=== PATIENT | female | born 1990 | race African-American/Black ===

== ENCOUNTER 2019-05-11 14:59 | Emergency (ER) | payer SELFPAY ==
[~2019-05-11] VITALS: Ht 160 cm; Wt 63.3 kg
[2019-05-11 15:35] VITALS: BP 104/68
[2019-05-11 15:41] LABS: BILIRUBIN,URINE NEGATIVE (NEG); CLARITY,URINE CLEAR; COLOR,URINE YELLOW; NITRITE,URINE NEGATIVE (NEG); PH,URINE 7.5 (<5.0-8.0); PROTEIN,URINE NEGATIVE (NEG-TRACE)
[2019-05-11 15:56] LABS: SQUAMOUS EPITHELIAL CELL,UR MOD /LPF
--- NOTE | 2019-05-11 15:56 | PHYS DOC ---
Past Medical History Past Medical History: No Pertinent History (GERALD HORNE APRN) Past Surgical History: No Surgical History (GERALD HORNE APRN) Smoking Status: Current Every Day Smoker Alcohol Use: None (GERALD HORNE APRN) Adult General Chief Complaint Chief Complaint: ABDOMINAL PAIN HPI HPI Patient is a 28 year old female who presents to the ED today complaining of 7 out of 10 intermittent pelvic pain, symptoms began 1-1/2 weeks ago. Patient is also reporting spotting for a week. Denies any chance she is . Denies being on any control. Denies any nausea, vomiting, diarrhea. Denies any concerns for STDs. (GERALD HORNE APRN) Review of Systems Review of Systems Constitutional: Denies fever or chills [] Eyes: Denies change in visual acuity, redness, or eye pain [] HENT: Denies nasal congestion or sore throat [] Respiratory: Denies cough or shortness of breath [] Cardiovascular: No additional information not addressed in HPI [] GI: Reports pelvic pain and spotting, denies, nausea, vomiting, bloody stools or diarrhea [] : Denies dysuria or hematuria [] Musculoskeletal: Denies back pain or joint pain [] Integument: Denies rash or skin lesions [] Neurologic: Denies headache, focal weakness or sensory changes [] All other systems were reviewed and found to be within normal limits, except as documented in this note. (GERALD HORNE APRN) Allergies Allergies Allergies Coded Allergies Type Severity Reaction Last Updated Verified nitrofurantoin Allergy Severe THROAT SWELLING 05/11/19 Yes (BRANDON GERMAN MD) Physical Exam Physical Exam Constitutional: Well developed, well nourished, no acute distress, non-toxic appearance. [] HENT: Normocephalic, atraumatic, bilateral external ears normal, oropharynx moist, no oral exudates, nose normal. [] Eyes: PERRLA, EOMI, conjunctiva normal, no discharge. [] Neck: Normal range of motion, no tenderness, supple, no stridor. [] Cardiovascular:Heart rate regular rhythm, no murmur [] Lungs & Thorax: Bilateral breath sounds clear to auscultation [] Abdomen: Bowel sounds normal, soft, no tenderness, no masses, no pulsatile masses. [] Pelvic exam External pelvic is normal, cervix is visualized, closed, no CMT, no adnexal tenderness, trace amount of bright red blood in the vaginal vault consistent with spotting. Skin: Warm, dry, no erythema, no rash. [] Back: No tenderness, no CVA tenderness. [] Extremities: No tenderness, no cyanosis, no clubbing, ROM intact, no edema. [] Neurologic: Alert and oriented X 3, normal motor function, normal sensory function, no focal deficits noted. [] Psychologic: Affect normal, judgement normal, mood normal. [] (GERALD HORNE APRN) Current Patient Data Vital Signs Vital Signs Date Time Temp Pulse Resp B/P (MAP) Pulse Ox O2 Delivery O2 Flow Rate FiO2 05/11/19 15:35 98.2 90 16 104/68 (80) 97 Room Air 98.2 (BRANDON GERMAN MD) Lab Values Laboratory Tests Test 05/11/19 15:20 05/11/19 15:28 Urine Collection Type Unknown Urine Color Yellow Urine Clarity Clear Urine pH 7.5 (<5.0-8.0) Urine Specific [place] >=1.030 (1.000-1.030) Urine Protein Negative mg/dL (NEG-TRACE) Urine Glucose (UA) Negative mg/dL (NEG) Urine Ketones (Stick) Negative mg/dL (NEG) Urine Blood Negative (NEG) Urine Nitrite Negative (NEG) Urine Bilirubin Negative (NEG) Urine Urobilinogen Dipstick 1.0 mg/dL (0.2 mg/dL) Urine Leukocyte Esterase Moderate (NEG) Urine RBC 1-2 /HPF (0-2) Urine WBC Tntc /HPF (0-4) Urine Squamous Epithelial Cells Mod /LPF Urine Bacteria 0 /HPF (0-FEW) Urine Mucus Marked /LPF POC Urine HCG, Qualitative Hcg negative (Negative) Microbiology 05/11/19 Wet Prep - Final, Complete (BRANDON GERMAN MD) EKG EKG [] (GERALD HORNE APRN) Radiology/Procedures Radiology/Procedures [] (GERALD HORNE APRN) Course & Med Decision Making Course & Med Decision Making Pertinent Labs and Imaging studies reviewed. (See chart for details) This is a 28-year-old female patient presenting to the ED today complaining of pelvic pain for 1-1/2 weeks and spotting for 1 week. Negative urine hCG. Wet prep positive for BV, discharged on Flagyl, I urine noted for moderate amount of leukocytes, too many to count WBCs though it appears contaminated we will treat this patient. Discharged on cephalexin. Follow-up with [facility] or primary care doctor in 1 to 2 weeks. (GERALD HORNE APRN) Course & Med Decision Making Staff Physician Addendum: I was working in the ER during the course of this patient's visit. I was available for consultation as needed, but I was not directly involved in the care of this patient. (BRANDON GERMAN MD) Dragon Disclaimer Dragon Disclaimer This electronic medical record was generated, in whole or in part, using a voice recognition dictation system. (GERALD HORNE APRN) Departure Departure Impression: Primary Impression: Dysfunctional uterine bleeding Additional Impressions: Urinary tract infection Bacterial vaginosis Disposition: HOME, SELF-CARE Condition: STABLE Referrals: NO PCP (PCP) JOSÉ LUIS ORBERTS MD follow up in 1-2 weeks Patient Instructions: Bacterial Vaginosis, Urinary Tract Infection, Uterine Bleeding, Dysfunctional, [id number] Additional Instructions: You have urinary tract infection and bacterial vaginosis, we put you on antibiotics, ensure you complete them. Do not drink on Flagyl. Push fluids. You can take [id number] pain relievers as needed. Follow-up with your own [facility] at the provided [facility] in 1 to 2 weeks. Scripts Metronidazole (FLAGYL) 500 Mg Tablet 1 TAB PO BID, #14 TAB Prov: GERALD HORNE APRN 05/11/19 Cephalexin (CEPHALEXIN) 500 Mg Tablet 1 TAB PO BID, #14 TAB Prov: GERALD HORNE APRN 05/11/19 Problem Qualifiers Additional Impressions: Urinary tract infection Urinary tract infection type: site unspecified Hematuria presence: without hematuria Qualified Codes: N39.0 - Urinary tract infection, site not specified GERALD HORNE APRN May 11, 2019 15:56 BRANDON GERMAN MD May 12, 2019 06:40
[2019-05-11 15:57] LABS: BACTERIA,URINE 0 /HPF (0-FEW); WBC,URINE TNTC /HPF (0-4)
[2019-05-11] MEDS ORDERED: METR500T PO (16:10)
[2019-05-11] MEDS ORDERED: CEPH500T PO (16:10)
[2019-05-13 02:07] LABS: GC PROBE Positive (Negative)
== END 2019-05-11 16:20 | disposition home or self-care (01) ==
LOC: ER 14:59
DX: N39.0 Urinary tract infection, site not specified (principal); N76.0 Acute vaginitis; N93.8 Other specified abnormal uterine and vaginal bleeding; R10.2 Pelvic and perineal pain; B96.89 Other specified bacterial agents as the cause of diseases classified elsewhere; F17.200 Nicotine dependence, unspecified, uncomplicated; Z88.1 Allergy status to other antibiotic agents
CPT/HCPCS: 81001; 81025; 87491; 87591; 99284; Q0111